=== PATIENT | male | born 1985 | race Caucasian/White ===

== ENCOUNTER 2020-03-23 15:25 | Emergency (ER) | payer OTHER ==
[2020-03-23] MEDS ORDERED: Ondansetron 4 MG/2 ML SDV IVPUSH ONE (16:11)
[2020-03-23] MEDS ORDERED: Sodium Chloride 0.9% 10 ML Syringe FLUSH PRN (16:11)
[2020-03-23] MEDS ORDERED: Sodium Chloride 0.9% 1,000 ML IV STA (16:11)
[2020-03-23] MEDS ORDERED: HYDROmorphone 1 MG/ML Syringe IVPUSH ONE (16:13)
[2020-03-23] MEDS ORDERED: Famotidine 20 MG/2 ML SDV IVPUSH ONE (16:13)
--- NOTE | 2020-03-23 16:35 | EDM.PDOC ---
ED HPI GENERAL MEDICAL PROBLEM - General Chief Complaint: Abdominal Pain Stated Complaint: STOMACH PAIN/VOMITTING Time Seen by Provider: 03/23/20 15:45 Source of Information: Reports: Patient History Limitations: Reports: No Limitations - History of Present Illness INITIAL COMMENTS - FREE TEXT/NARRATIVE: The patient presents with upper abdominal pain, nausea and vomiting. This has been going on for about a week. This has been a chronic problem for the past 6 years. He also has cyclic nausea and vomiting. He has no fever, chills, cough, chest pain, shortness of breath, dysuria or hematuria. He does not have an appendix. Onset: Gradual Duration: Week(s): Location: Reports: Abdomen Quality: Reports: Sharp Severity: Severe Improves with: Reports: None Worsens with: Reports: None Associated Symptoms: Reports: Nausea/Vomiting. Denies: Chest Pain, Cough, Fever/Chills, Headaches, Shortness of Breath Abdomen Pain Score (Numeric/FACES): 8 - Related Data Allergies Allergy/AdvReac Type Severity Reaction Status Date / Time No Known Allergies Allergy Verified 03/23/20 15:43 Home Meds: Home Meds . [No Known Home Meds] 03/23/20 [History] Past Medical History - Past Health History Medical/Surgical History: Denies Medical/Surgical History Social & Family History - Tobacco Use Smoking Status *Q: Current Some Day Smoker Years of Tobacco use: 5 Packs/Tins Daily: 0.1 - Caffeine Use Caffeine Use: Reports: None - Recreational Drug Use Recreational Drug Use: No ED ROS GENERAL - Review of Systems Review Of Systems: See Below Constitutional: Reports: No Symptoms HEENT: Reports: No Symptoms Respiratory: Reports: No Symptoms Cardiovascular: Reports: No Symptoms Endocrine: Reports: No Symptoms GI/Abdominal: Reports: Abdominal Pain, Nausea, Vomiting : Reports: No Symptoms Musculoskeletal: Reports: No Symptoms ED EXAM, GI/ABD - Physical Exam Exam: See Below Exam Limited By: No Limitations General Appearance: Alert, No Apparent Distress Ears: Normal External Exam Nose: Normal Inspection Head: Atraumatic, Normocephalic Neck: Normal Inspection Respiratory/Chest: No Respiratory Distress, Lungs Clear, Normal Breath Sounds Cardiovascular: Regular Rate, Rhythm, No Edema, No Murmur GI/Abdominal Exam: Soft, No Organomegaly, No Mass, Tender (Moderate upper abdominal pain) Course - Vital Signs Last Recorded V/S: Last Vital Signs Temp 98.7 F 03/23/20 15:40 Pulse 97 03/23/20 16:34 Resp 16 03/23/20 16:34 BP 117/114 H 03/23/20 16:34 Pulse Ox 100 03/23/20 16:34 - Orders/Labs/Meds Orders: Active Orders 24 hr Category Date Time Status Peripheral IV Care [RC] . DIRECTED Care 03/23/20 16:12 Active Sodium Chloride 0.9% [Saline Flush] Med 03/23/20 16:11 Active 10 ml FLUSH ASDIRECTED PRN ED Antiemetic Medication Reflex [OM.PC] Stat Oth 03/23/20 16:12 Ordered Peripheral IV Insertion Adult [OM.PC] Stat Oth 03/23/20 16:11 Ordered Medication Orders Sodium Chloride (Saline Flush) 10 ml FLUSH ASDIRECTED PRN PRN Reason: Keep Vein Open Last Admin: 03/23/20 16:20 Dose: 10 ml Documented by: ANDREA Labs: Laboratory Tests 03/23/20 03/23/20 Range/Units 16:18 16:18 WBC 10.28 H (4.23-9.07) K/mm3 RBC 5.53 (4.63-6.08) M/mm3 Hgb 16.4 (13.7-17.5) gm/dl Hct 48.0 (40.1-51.0) % MCV 86.8 (79.0-92.2) fl MCH 29.7 (25.7-32.2) pg MCHC 34.2 (32.2-35.5) g/dl RDW Std Deviation 41.8 (35.1-43.9) fL Plt Count 375 H (163-337) K/mm3 MPV 8.2 L (9.4-12.3) fl Neut % (Auto) 69.1 H (34.0-67.9) % Lymph % (Auto) 21.5 L (21.8-53.1) % [place] % (Auto) 9.1 (5.3-12.2) % Eos % (Auto) 0 L (0.8-7.0) Baso % (Auto) 0.1 (0.1-1.2) % Neut # (Auto) 7.10 H (1.78-5.38) K/mm3 Lymph # (Auto) 2.21 (1.32-3.57) K/mm3 [place] # (Auto) 0.94 H (0.30-0.82) K/mm3 Eos # (Auto) 0.00 L (0.04-0.54) K/mm3 Baso # (Auto) 0.01 (0.01-0.08) K/mm3 Manual Slide Review Normal smear Sodium 141 (136-145) mEq/L Potassium 3.4 L (3.5-5.1) mEq/L Chloride 101 (98-107) mEq/L Carbon Dioxide 28 (21-32) mEq/L Anion Gap 15.4 H (5-15) BUN 19 H (7-18) mg/dL Creatinine 1.9 H (0.7-1.3) mg/dL Est Cr Clr Drug Dosing 61.33 mL/min Estimated GFR (MDRD) 41 (>60) mL/min BUN/Creatinine Ratio 10.0 L (14-18) Glucose 121 H (74-106) mg/dL Calcium 9.6 (8.5-10.1) mg/dL Total Bilirubin 0.6 (0.2-1.0) mg/dL AST 19 (15-37) U/L ALT 41 (16-63) U/L Alkaline Phosphatase 91 (46-116) U/L Total Protein 8.7 H (6.4-8.2) g/dl Albumin 4.4 (3.4-5.0) g/dl Globulin 4.3 gm/dL Albumin/Globulin Ratio 1.0 (1-2) Lipase 162 (73-393) U/L Meds: Medications Generic Name Dose Route Start Last Admin Trade Name Freq PRN Reason Stop Dose Admin Sodium Chloride 10 ml 03/23/20 16:11 03/23/20 16:20 Saline Flush FLUSH 10 ml ASDIRECTED PRN Administration Keep Vein Open Discontinued Medications Generic Name Dose Route Start Last Admin Trade Name Freq PRN Reason Stop Dose Admin Famotidine 20 mg 03/23/20 16:13 03/23/20 16:31 Pepcid IVPUSH 03/23/20 16:14 20 mg ONETIME ONE Administration Hydromorphone HCl 1 mg 03/23/20 16:13 03/23/20 16:28 Dilaudid IVPUSH 03/23/20 16:14 1 mg ONETIME ONE Administration Sodium Chloride 1,000 mls @ 1,000 mls/hr 03/23/20 16:11 03/23/20 16:25 Normal Saline IV 03/23/20 17:10 1,000 mls/hr .BOLUS STA Administration Ondansetron HCl 4 mg 03/23/20 16:11 03/23/20 16:26 Zofran IVPUSH 03/23/20 16:12 4 mg ONETIME ONE Administration - Re-Assessments/Exams Free Text/Narrative Re-Assessment/Exam: 03/23/20 16:39 I ordered an IV NS 1L bolus, zofran 4mg IV, dilaudid 1mg IV, labs and UA. 03/23/20 17:16 His WBC is elevated at 10.28. His K is low at 3.4. His anion gap is elevated at 15.4. His creatinine is elevated at 1.9. His glucose is 121. He was dehydrated. I will get him on some zofran and some thing for pain. Departure - Departure Time of Disposition: 17:30 Disposition: Home, Self-Care 01 Condition: Good Clinical Impression: Abdominal pain Qualifiers: Abdominal location: upper abdomen, unspecified Qualified Code(s): R10.10 - Upper abdominal pain, unspecified Vomiting Qualifiers: Vomiting type: unspecified Vomiting Intractability: non-intractable Nausea presence: with nausea Qualified Code(s): R11.2 - Nausea with vomiting, unspecified - Discharge Information *PRESCRIPTION DRUG MONITORING PROGRAM REVIEWED*: Not Applicable *COPY OF PRESCRIPTION DRUG MONITORING REPORT IN PATIENT MISSY: Not Applicable Referrals: PCP,None [Primary Care Provider] - Rachell Munoz, NAY [Nurse Practitioner] - 1 Week Forms: ED Department Discharge Additional Instructions: Take the zofran every 6 hours as needed for nausea and vomiting. Take the hydrocodone as needed for pain. Follow up with Rachell Munoz within a week. Take the nexium daily. Please return if you are worse. Sepsis Event Note (ED) - Evaluation Sepsis Screening Result: No Definite Risk - Focused Exam Vital Signs: Vital Signs Temp Pulse Resp BP Pulse Ox 03/23/20 16:34 97 16 117/114 H 100 03/23/20 15:40 98.7 F 95 16 184/111 H 97 - My Orders Last 24 Hours: My Active Orders 03/23/20 16:11 Sodium Chloride 0.9% [Saline Flush] 10 ml FLUSH ASDIRECTED PRN Peripheral IV Insertion Adult [OM.PC] Stat 03/23/20 16:12 Peripheral IV Care [RC] . DIRECTED ED Antiemetic Medication Reflex [OM.PC] Stat - Assessment/Plan Last 24 Hours: My Active Orders 03/23/20 16:11 Sodium Chloride 0.9% [Saline Flush] 10 ml FLUSH ASDIRECTED PRN Peripheral IV Insertion Adult [OM.PC] Stat 03/23/20 16:12 Peripheral IV Care [RC] . DIRECTED ED Antiemetic Medication Reflex [OM.PC] Stat
[2020-03-23 16:36] VITALS: BP 117/114; PULSE 97
== END 2020-03-23 17:40 | disposition home or self-care (01) ==
LOC: JD.ED 15:25
DX: R10.10 Upper abdominal pain, unspecified (principal); R11.2 Nausea with vomiting, unspecified; F17.210 Nicotine dependence, cigarettes, uncomplicated
CPT/HCPCS: 36415; 80053; 83690; 85025; 96361; 96374; 96375; 99284; J1170; J2405; J3490; J7030

== ENCOUNTER 2020-03-28 13:16 | Emergency (ER) | payer OTHER ==
[2020-03-28] MEDS ORDERED: Ondansetron 4 MG/2 ML SDV ONE (13:54)
[2020-03-28] MEDS ORDERED: Lactated Ringers 1,000 ML ONE (13:54)
[2020-03-28] MEDS ORDERED: Pantoprazole 40 MG Vial ONE (13:54)
[2020-03-28] MEDS: HYDROmorphone 1 MG/ML Syringe ONE ×2 (14:02→15:39)
[2020-03-28 14:24] VITALS: BP 168/118; PULSE 100
[2020-03-28] MEDS ORDERED: Iopamidol 612 MG/ML 100 ML Bottle IVPUSH ONE (15:36)
[2020-03-28] MEDS ORDERED: Sodium Chloride 0.9% 10 ML Syringe FLUSH ONE (15:36)
[2020-03-28] MEDS ORDERED: HYDROmorphone 0.5 MG/0.5 ML Syringe IVPUSH ONE (15:37)
[2020-03-28] MEDS: HYDROmorphone 0.5 MG/0.5 ML Syringe ONE ×2 (15:39→15:40)
--- NOTE | 2020-03-28 15:44 | EDM.PDOC ---
ED HPI GENERAL MEDICAL PROBLEM - General Chief Complaint: Abdominal Pain Time Seen by Provider: 03/28/20 13:25 - History of Present Illness INITIAL COMMENTS - FREE TEXT/NARRATIVE: 34-year-old male presents the emergency room with abdominal pain. This is been going on getting worse over the last up to 2 weeks. The patient was seen here a while back and was started on Protonix given some pain medication and nausea medication. This started get worse after he ran out of the medications it is unclear to me whether he got the Protonix filled. He has not had any fevers or chills but he is had some nausea vomiting get worse and dry heaves at times. Patient does use marijuana at times. And cyclic vomiting syndrome has been brought up. The patient has a history of having an appendectomy in the past. 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 [No Known Home Meds] 03/28/20 [History] Past Medical History - Past Health History Medical/Surgical History: Denies Medical/Surgical History Gastrointestinal History: Reports: Other (See Below) Other Gastrointestinal History: ulcerative colitis - Past Surgical History GI Surgical History: Reports: None Social & Family History - Family History Family Medical History: Noncontributory - Tobacco Use Smoking Status *Q: Never Smoker Second Hand Smoke Exposure: No - Caffeine Use Caffeine Use: Reports: None - Recreational Drug Use Recreational Drug Use: Yes Recreational Drug Type: Reports: Marijuana/Hashish Recreational Drug Use Frequency: Daily Recreational Drug Last Use: marijuana ED ROS GENERAL - Review of Systems Review Of Systems: See Below Constitutional: Reports: No Symptoms Respiratory: Reports: No Symptoms Cardiovascular: Reports: No Symptoms GI/Abdominal: Reports: Abdominal Pain, Nausea, Vomiting. Denies: Black Stool, Bloody Stool, Constipation, Diarrhea : Reports: No Symptoms, Discharge. Denies: Dysuria, Flank Pain Musculoskeletal: Reports: No Symptoms Skin: Reports: No Symptoms Neurological: Reports: No Symptoms Psychiatric: Reports: No Symptoms ED EXAM, GI/ABD - Physical Exam Exam: See Below Exam Limited By: No Limitations General Appearance: Alert, Mild Distress (From the nausea and vomiting) Head: Atraumatic, Normocephalic Neck: Normal Inspection, Supple, Non-Tender, Full Range of Motion. No: Lymphadenopathy (L), Lymphadenopathy (R) Respiratory/Chest: No Respiratory Distress, Lungs Clear, Normal Breath Sounds Cardiovascular: Regular Rate, Rhythm, No Edema, No Murmur GI/Abdominal Exam: Normal Bowel Sounds, Soft, Tender (Significant upper abdominal discomfort but it is somewhat vague seems to be worse midline and down to the left suprapubic area. No rigidity rebound or guarding noted) Back Exam: Normal Inspection, Full Range of Motion. No: CVA Tenderness (L), CVA Tenderness (R) Extremities: Normal Inspection, Normal Range of Motion, Non-Tender, No Pedal Edema, Normal Capillary Refill Neurological: Alert, Oriented, Normal Cognition Course - Vital Signs Last Recorded V/S: Last Vital Signs Temp 36.8 C 03/28/20 13:20 Pulse 100 03/28/20 13:20 Resp 24 H 03/28/20 13:20 BP 168/118 H 03/28/20 13:20 Pulse Ox 99 03/28/20 13:20 - Orders/Labs/Meds Orders: Active Orders 24 hr Category Date Time Status Abdomen Pelvis w Cont [CT] Routine Exams 03/28/20 15:00 Taken Labs: Laboratory Tests 03/28/20 03/28/20 03/28/20 Range/Units 13:15 13:15 13:15 WBC 10.10 H (4.23-9.07) K/mm3 RBC 5.79 (4.63-6.08) M/mm3 Hgb 17.0 (13.7-17.5) gm/dl Hct 50.5 (40.1-51.0) % MCV 87.2 (79.0-92.2) fl MCH 29.4 (25.7-32.2) pg MCHC 33.7 (32.2-35.5) g/dl RDW Std Deviation 44.5 H (35.1-43.9) fL Plt Count 331 (163-337) K/mm3 MPV 8.7 L (9.4-12.3) fl Neut % (Auto) 72.7 H (34.0-67.9) % Lymph % (Auto) 18.5 L (21.8-53.1) % [place] % (Auto) 7.0 (5.3-12.2) % Eos % (Auto) 1.2 (0.8-7.0) Baso % (Auto) 0.2 (0.1-1.2) % Neut # (Auto) 7.34 H (1.78-5.38) K/mm3 Lymph # (Auto) 1.87 (1.32-3.57) K/mm3 [place] # (Auto) 0.71 (0.30-0.82) K/mm3 Eos # (Auto) 0.12 (0.04-0.54) K/mm3 Baso # (Auto) 0.02 (0.01-0.08) K/mm3 Manual Slide Review Normal smear Sodium 142 (136-145) mEq/L Potassium 3.7 (3.5-5.1) mEq/L Chloride 106 (98-107) mEq/L Carbon Dioxide 24 (21-32) mEq/L Anion Gap 15.7 H (5-15) BUN 11 (7-18) mg/dL Creatinine 1.7 H (0.7-1.3) mg/dL Est Cr Clr Drug Dosing 68.54 mL/min Estimated GFR (MDRD) 46 (>60) mL/min BUN/Creatinine Ratio 6.5 L (14-18) Glucose 112 H (74-106) mg/dL Calcium 10.0 (8.5-10.1) mg/dL Total Bilirubin 0.5 (0.2-1.0) mg/dL AST 18 (15-37) U/L ALT 26 (16-63) U/L Alkaline Phosphatase 84 (46-116) U/L Total Protein 8.9 H (6.4-8.2) g/dl Albumin 4.5 (3.4-5.0) g/dl Globulin 4.4 gm/dL Albumin/Globulin Ratio 1.0 (1-2) Lipase 193 (73-393) U/L Urine Color Yellow (Yellow) Urine Appearance Clear (Clear) Urine pH 5.5 (5.0-8.0) Ur Specific [place] 1.025 (1.005-1.030) Urine Protein 1+ H (Negative) Urine Glucose (UA) Negative (Negative) Urine Ketones 2+ H (Negative) Urine Occult Blood Trace-lysed H (Negative) Urine Nitrite Negative (Negative) Urine Bilirubin 1+ H (Negative) Urine Urobilinogen 0.2 (0.2-1.0) Ur Leukocyte Esterase Negative (Negative) Urine RBC 0-5 (0-5) /hpf Urine WBC 0-5 (0-5) /hpf Ur Squamous Epith Cells 0-5 (0-5) /hpf Urine Bacteria Few (FEW) /hpf Urine Mucus Moderate H (FEW) /hpf Meds: Medications Discontinued Medications Generic Name Dose Route Start Last Admin Trade Name Leon PRN Reason Stop Dose Admin Hydromorphone HCl Confirm 03/28/20 13:54 03/28/20 14:02 Dilaudid Administered 03/28/20 13:55 1 mg Dose Administration 1 mg .ROUTE .STK-MED ONE Hydromorphone HCl Confirm 03/28/20 15:36 03/28/20 15:39 Dilaudid Administered 03/28/20 15:37 Not Given Dose 0.5 mg .ROUTE .STK-MED ONE Hydromorphone HCl 0.5 mg 03/28/20 15:37 03/28/20 15:36 Dilaudid IVPUSH 03/28/20 15:38 0.5 mg ONETIME ONE Administration Lactated Ringer's Confirm 03/28/20 13:54 03/28/20 14:02 Ringers, Lactated Administered 03/28/20 13:55 150 mls/hr Dose Administration 1,000 mls @ as directed .ROUTE .STK-MED ONE Iopamidol 100 ml 03/28/20 15:36 03/28/20 15:37 Isovue-300 (61%) IVPUSH 03/28/20 15:37 100 ml ONETIME ONE Administration Ondansetron HCl Confirm 03/28/20 13:54 03/28/20 13:56 Zofran Administered 03/28/20 13:55 4 mg Dose Administration 4 mg .ROUTE .STK-MED ONE Pantoprazole Sodium Confirm 03/28/20 13:54 03/28/20 13:58 Protonix Iv Administered 03/28/20 13:55 80 mg Dose Administration 80 mg .ROUTE .STK-MED ONE Sodium Chloride 10 ml 03/28/20 15:36 03/28/20 15:37 Saline Flush FLUSH 03/28/20 15:37 10 ml ONETIME ONE Administration Sucralfate 1 gm 03/28/20 15:52 03/28/20 17:20 Carafate PO 03/28/20 15:53 1 gm ONETIME ONE Administration - Re-Assessments/Exams Free Text/Narrative Re-Assessment/Exam: 03/28/20 15:33 [employer] was down when the patient was first seen paper orders for the labs did not make it to the lab and there is these are getting reordered now abdominal CT has already been done awaiting radiologic interpretation. Departure - Departure Time of Disposition: 16:00 Disposition: Eloped 07 Clinical Impression: Abdominal pain Qualifiers: Abdominal location: upper abdomen, unspecified Qualified Code(s): R10.10 - Upper abdominal pain, unspecified - Discharge Information Referrals: PCP,None [Primary Care Provider] - Forms: ED Department Discharge Sepsis Event Note (ED) - Evaluation Sepsis Screening Result: No Definite Risk - Focused Exam Vital Signs: Vital Signs Temp Pulse Resp BP Pulse Ox 03/28/20 13:20 36.8 C 100 24 H 168/118 H 99 - My Orders Last 24 Hours: My Active Orders 03/28/20 15:00 Abdomen Pelvis w Cont [CT] Routine - Assessment/Plan Last 24 Hours: My Active Orders 03/28/20 15:00 Abdomen Pelvis w Cont [CT] Routine
[2020-03-28] MEDS ORDERED: Sucralfate 1 GM Tab PO ONE (15:52)
--- NOTE | 2020-03-28 20:30 | CT ---
CT abdomen and pelvis Technique: Multiple axial sections were obtained from above the dome of the diaphragm inferiorly through the pubic symphysis. Intravenous contrast was utilized. No oral contrast has been given. Findings: Visualized lung bases show nothing acute. Liver contains no focal parenchymal abnormality. Spleen appears within normal limits. Accessory splenic nodule is noted off the inferior spleen. Adrenal glands show no nodule. Pancreas is within normal limits. Gallbladder contains no calcified gallstones. Kidneys show symmetric contrast enhancement without hydronephrosis or mass. Aorta shows no aneurysm. No retroperitoneal adenopathy or mesenteric abnormalities are seen. No pelvic mass or adenopathy is identified. Partially visualized small low-density area noted anterior the within the subcutaneous fat to the left thigh. Please correlate if this represents change from small hematoma from injury or represents an injection site. Appendix is not visualized with certainty. 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 No ureteral dilatation is seen. Right ureter is opacified distally. Contrast noted within the bladder. Bone window settings were reviewed. No acute osseous finding is appreciated. Impression: 1. Small low-density finding within the upper thigh partially included on the study. This may represent small hematoma patient has a prior injury. Findings could also represent change from previous injection. 2. Other findings which are believed to be incidental. Nothing acute is otherwise seen. Diagnostic code #2 I agree with preliminary report issued by [facility] ([facility] preliminary report dictated on 03/28/20, 4:28 PM Central Daylight Time) Study was dictated in MDT MTDD
== END 2020-03-28 17:25 | disposition left against medical advice (07) ==
LOC: JD.ED 13:16
DX: R10.10 Upper abdominal pain, unspecified (principal); R10.32 Left lower quadrant pain; R11.2 Nausea with vomiting, unspecified
CPT/HCPCS: 36415; 74177; 80053; 81001; 83690; 85025; 96374; 96375; 99284; A9270; C9113; J1170; J2405; J7120; Q9967; 99283

== ENCOUNTER 2024-12-24 15:12 | Emergency (ER) | payer SELFPAY ==
[2024-12-24] MEDS ORDERED: Naloxone 0.4 MG/ML SDV IVPUSH PRN (16:30)
[2024-12-24] MEDS: Lidocaine 1% with EPINEPHrine 1:100,000 20 ML MDV INJECT ONE (16:45)
[2024-12-24] MEDS: cefTRIAXone 1 GM, Lidocaine 1% 2.1 ML IM ONE (16:45)
[2024-12-24] MEDS: LORazepam 1 MG Tab PO ONE (16:46)
[2024-12-24] MEDS: fentaNYL 100 MCG/2 ML SDV IM ONE (16:46)
[2024-12-24] MEDS: Lidocaine 1% 10 ML MDV ONE (17:11)
[2024-12-24 17:24] VITALS: BP 136/97; PULSE 123
[2024-12-24] MEDS: Ondansetron 4 MG Tab.DIS PO ONE (17:37)
[2024-12-24] MEDS: Lidocaine 1% 10 ML MDV INJECT ONE (17:38)
[2024-12-24] MEDS: fentaNYL 100 MCG/2 ML SDV IVPUSH ONE (17:57)
== END 2024-12-24 19:00 | disposition home or self-care (01) ==
LOC: JD.ED 15:12
DX: T22.511A Corrosion of first degree of right forearm, initial encounter (principal); T20.46XA Corrosion of unspecified degree of forehead and cheek, initial encounter; T23.402A Corrosion of unspecified degree of left hand, unspecified site, initial encounter; S61.217A Laceration without foreign body of left little finger without damage to nail, initial encounter; S01.21XA Laceration without foreign body of nose, initial encounter; S61.012A Laceration without foreign body of left thumb without damage to nail, initial encounter; S30.811A Abrasion of abdominal wall, initial encounter; S20.319A Abrasion of unspecified front wall of thorax, initial encounter; Z88.1 Allergy status to other antibiotic agents; Z79.899 Other long term (current) drug therapy; W25.XXXA Contact with sharp glass, initial encounter
CPT/HCPCS: 12004; 12031; 12051; 71045; 73060; 73090; 74018; 96372; 96374; 99284; A9270; J0696; J2003; J2004; J3010

== ENCOUNTER 2024-12-30 18:39 | Emergency (ER) | payer SELFPAY ==
[2024-12-30 18:53] VITALS: BP 145/94; PULSE 75
[2024-12-30] MEDS ORDERED: Sodium Chloride 0.9% 10 ML Syringe FLUSH PRN ×2 (19:45→19:48)
[2024-12-30] MEDS: Iopamidol 612 MG/ML 100 ML Bottle IVPUSH ONE (20:04)
== END 2024-12-30 19:50 | disposition left against medical advice (07) ==
LOC: JD.ED 18:39
DX: R11.2 Nausea with vomiting, unspecified (principal); R10.13 Epigastric pain; Z88.1 Allergy status to other antibiotic agents; Z79.899 Other long term (current) drug therapy
CPT/HCPCS: 99283

== ENCOUNTER 2025-03-30 11:51 | Inpatient (IN) | payer BC, MEDICAID ==
[2025-03-30] MEDS ORDERED: Sodium Chloride 0.9% 10 ML Syringe FLUSH PRN (12:17)
[2025-03-30 13:24] LABS: BASOPHILS ABSOLUTE AUTO 0.0 K/mm3 (0.0-0.2); BASOPHILS PERCENT AUTO 0.2 % (0.0-1.0); EOSINOPHILS ABSOLUTE AUTO 0.0 K/mm3 (0.0-0.4); EOSINOPHILS PERCENT AUTO 0.3 % (0.0-6.0); IMMATURE GRAN ABSOLUTE AUTO 0.04 K/mm3 (0.00-0.05); IMMATURE GRAN PERCENT AUTO 0.4 % (0.0-0.4); LYMPHOCYTES ABSOLUTE AUTO 1.9 K/mm3 (1.0-4.8); LYMPHOCYTES PERCENT AUTO 20.2 % (24.0-44.0); MEAN PLATELET VOLUME 8.7 fl (9.4-12.4); MONOCYTES ABSOLUTE AUTO 1.0 K/mm3 (0.0-0.8); MONOCYTES PERCENT AUTO 10.5 % (0.0-8.0); NEUTROPHILS ABSOLUTE AUTO 6.5 K/mm3 (1.8-7.7); NEUTROPHILS PERCENT AUTO 68.4 % (41.0-71.0); NRBC ABSOLUTE 0.00 (0.00-0.02); NRBC PERCENT 0.0 % (0.0-0.2); PLATELET COUNT,PLT 367 K/mm3 (150-400); RED BLOOD CELL COUNT 5.86 M/mm3 (4.52-5.90); WHITE BLOOD CELL COUNT,WBC 9.46 K/mm3 (3.9-11.3)
[2025-03-30] MEDS: Ondansetron 4 MG/2 ML SDV IVPUSH ONE ×2 (13:29→16:36)
[2025-03-30 13:56] LABS: A/G RATIO 1.0 (1-2); ALANINE AMINOTRANSFERASE,ALT 44.0 U/L (16-63); ASPARTATE AMNIOTRANSFERASE,AST 24.0 U/L (15-37); BILIRUBIN TOTAL 1.3 mg/dL (0.2-1.0); BLOOD UREA NITROGEN,BUN 42.0 mg/dL (7-18); CARBON DIOXIDE,CO2 39.0 mEq/L (21-32); CHLORIDE,CL 85.0 mEq/L (98-107); CREATININE 1.4 mg/dL (0.7-1.3); EST CRCL DRUG DOSING (CG) 79.27 mL/min; ESTIMATED GFR 65.0 mL/min (>60); GLUCOSE RANDOM 110.0 mg/dL (70-99); POTASSIUM,K 3.1 mEq/L (3.5-5.1); PROTEIN TOTAL,TP 8.4 g/dl (6.4-8.2)
[2025-03-30 14:04] LABS: SODIUM,NA 130.0 mEq/L (136-145)
[2025-03-30] MEDS ORDERED: Naloxone 0.4 MG/ML SDV IVPUSH PRN ×2 (14:10→15:53)
[2025-03-30] MEDS: Sodium Chloride 0.9% 10 ML Syringe FLUSH ONE (14:23)
[2025-03-30] MEDS: Iopamidol 612 MG/ML 100 ML Bottle IVPUSH ONE (14:23)
[2025-03-30 17:02] LABS: CHOLESTEROL HDL 41.0 mg/dL (40-59); CHOLESTEROL LDL DIRECT 157.0 mg/dL (<100); CHOLESTEROL TOTAL 216.0 mg/dL (<200); PHOSPHORUS 3.0 mg/dL (2.6-4.7)
[2025-03-30] MEDS: Lactated Ringers 1,000 ML IV SCH (17:36)
[2025-03-30 18:27] LABS: APPEARANCE,URINE CLEAR (Clear); GLUCOSE,URINE NEGATIVE (Negative); OCCULT BLOOD,URINE NEGATIVE (Negative)
[2025-03-30 18:36] LABS: EPITHELIAL CELLS,URINE 0-5 /hpf (0-5)
[2025-03-30 18:37] LABS: BUPRENORPHINE SCREEN,URINE NEGATIVE (CUTOFF=10); METHADONE SCREEN, URINE NEGATIVE (CUT0FF=200); METHAMPHETAMINES SCREEN, URINE NEGATIVE (CUTOFF=500); OXYCODONE SCREEN,URINE NEGATIVE (CUT0FF=100); THC SCREEN,URINE 20 NG/ML PRESUMPTIVE POSITIVE (CUTOFF=50)
[2025-03-30 18:38] LABS: AMPHETAMINES SCREEN, URINE NEGATIVE (CUTOFF=500)
[2025-03-30] MEDS: Potassium Chloride 20 MEQ Tab.ER PO ONE (20:49)
[2025-03-31] MEDS: Ondansetron 4 MG/2 ML SDV IV PRN (01:31)
[2025-03-31 05:55] LABS: BASOPHILS ABSOLUTE AUTO 0.0 K/mm3 (0.0-0.2); BASOPHILS PERCENT AUTO 0.2 % (0.0-1.0); EOSINOPHILS ABSOLUTE AUTO 0.1 K/mm3 (0.0-0.4); EOSINOPHILS PERCENT AUTO 0.6 % (0.0-6.0); IMMATURE GRAN ABSOLUTE AUTO 0.04 K/mm3 (0.00-0.05); IMMATURE GRAN PERCENT AUTO 0.5 % (0.0-0.4); LYMPHOCYTES ABSOLUTE AUTO 1.8 K/mm3 (1.0-4.8); LYMPHOCYTES PERCENT AUTO 20.8 % (24.0-44.0); MEAN PLATELET VOLUME 8.8 fl (9.4-12.4); MONOCYTES ABSOLUTE AUTO 0.9 K/mm3 (0.0-0.8); MONOCYTES PERCENT AUTO 10.2 % (0.0-8.0); NEUTROPHILS ABSOLUTE AUTO 5.9 K/mm3 (1.8-7.7); NEUTROPHILS PERCENT AUTO 67.7 % (41.0-71.0); NRBC ABSOLUTE 0.00 (0.00-0.02); NRBC PERCENT 0.0 % (0.0-0.2); PLATELET COUNT,PLT 323 K/mm3 (150-400); RED BLOOD CELL COUNT 4.96 M/mm3 (4.52-5.90); WHITE BLOOD CELL COUNT,WBC 8.71 K/mm3 (3.9-11.3)
[2025-03-31 06:05] LABS: A/G RATIO 1.0 (1-2); ALANINE AMINOTRANSFERASE,ALT 36.0 U/L (16-63); ASPARTATE AMNIOTRANSFERASE,AST 17.0 U/L (15-37); BILIRUBIN TOTAL 0.9 mg/dL (0.2-1.0); BLOOD UREA NITROGEN,BUN 26.0 mg/dL (7-18); CARBON DIOXIDE,CO2 32.0 mEq/L (21-32); CHLORIDE,CL 89.0 mEq/L (98-107); CREATININE 1.2 mg/dL (0.7-1.3); EST CRCL DRUG DOSING (CG) 92.48 mL/min; ESTIMATED GFR 78.0 mL/min (>60); GLUCOSE RANDOM 107.0 mg/dL (70-99); POTASSIUM,K 3.1 mEq/L (3.5-5.1); PROTEIN TOTAL,TP 6.8 g/dl (6.4-8.2); SODIUM,NA 129.0 mEq/L (136-145)
[2025-03-31] MEDS: Potassium Chloride 20 MEQ Tab.ER PO ONE (09:33)
[2025-04-01 05:20] LABS: BLOOD UREA NITROGEN,BUN 14.0 mg/dL (7-18); CARBON DIOXIDE,CO2 32.0 mEq/L (21-32); CHLORIDE,CL 97.0 mEq/L (98-107); CREATININE 1.0 mg/dL (0.7-1.3); EST CRCL DRUG DOSING (CG) 110.97 mL/min; ESTIMATED GFR 98.0 mL/min (>60); GLUCOSE RANDOM 91.0 mg/dL (70-99); POTASSIUM,K 2.9 mEq/L (3.5-5.1); SODIUM,NA 135.0 mEq/L (136-145)
[2025-04-01] MEDS: Potassium Chloride 20 MEQ Tab.ER PO ONE (09:58)
[2025-04-02 09:21] LABS: A/G RATIO 0.9 (1-2); ALANINE AMINOTRANSFERASE,ALT 28.0 U/L (16-63); ASPARTATE AMNIOTRANSFERASE,AST 17.0 U/L (15-37); BILIRUBIN TOTAL 0.3 mg/dL (0.2-1.0); BLOOD UREA NITROGEN,BUN 12.0 mg/dL (7-18); CARBON DIOXIDE,CO2 29.0 mEq/L (21-32); CHLORIDE,CL 103.0 mEq/L (98-107); CREATININE 0.8 mg/dL (0.7-1.3); EST CRCL DRUG DOSING (CG) 138.72 mL/min; ESTIMATED GFR 115.0 mL/min (>60); GLUCOSE RANDOM 109.0 mg/dL (70-99); POTASSIUM,K 3.7 mEq/L (3.5-5.1); PROTEIN TOTAL,TP 6.1 g/dl (6.4-8.2)
[2025-04-02 09:38] LABS: SODIUM,NA 136.0 mEq/L (136-145)
[2025-04-02] MEDS: Lactated Ringers 1,000 ML IV SCH (18:27)
[2025-04-03 10:55] VITALS: BP 126/95; PULSE 76
== END 2025-04-03 09:57 | disposition home or self-care (01) | DRG 439 ==
LOC: JD.ED 11:51 → JD.MS 16:49
PROVIDERS: ADMIT Family Medicine; ATTEND Family Medicine
DX: K85.20 Alcohol induced acute pancreatitis without necrosis or infection (principal); E87.1 Hypo-osmolality and hyponatremia; N17.9 Acute kidney failure, unspecified; E86.0 Dehydration; K29.00 Acute gastritis without bleeding; E87.6 Hypokalemia; E87.8 Other disorders of electrolyte and fluid balance, not elsewhere classified; Z90.49 Acquired absence of other specified parts of digestive tract; Z88.8 Allergy status to other drugs, medicaments and biological substances
CPT/HCPCS: 36415; 74177; 74177-26; 80048; 80053; 80061; 80306; 80307; 81001; 83690; 83735; 84100; 85025; 86140; 96361; 96374; 96375; 96376; 99285; 99285-25; A9270-GY; J1171; J1650; J2405; J2470; J3480; J7030; J7120; Q9967